=== PATIENT | male | born 1975 | race Caucasian/White ===

== ENCOUNTER 2017-04-08 23:05 | Emergency (ER) | payer MEDICAID ==
[~2017-04-08] VITALS: Ht 177.8 cm; Wt 110.5 kg
[2017-04-09] MEDS ORDERED: HydrOXYzine HCL 25 MG TABLET PO ONE (02:15)
[2017-04-09 02:35] VITALS: BP 131/75
== END 2017-04-09 02:38 | disposition home or self-care (01) ==
LOC: EMS 23:10
DX: F41.9 Anxiety disorder, unspecified (principal); F15.90 Other stimulant use, unspecified, uncomplicated
CPT/HCPCS: 99284

== ENCOUNTER 2018-11-23 12:16 | Emergency (ER) | payer SELFPAY ==
[~2018-11-23] VITALS: Ht 182.9 cm; Wt 111.4 kg
[2018-11-23 13:59] VITALS: BP 182/106
== END 2018-11-23 14:54 | disposition home or self-care (01) ==
LOC: EDUNIT# 12:16 → EMS 12:19
DX: F10.239 Alcohol dependence with withdrawal, unspecified (principal); F41.9 Anxiety disorder, unspecified; I10 Essential (primary) hypertension; Z88.0 Allergy status to penicillin; Y90.9 Presence of alcohol in blood, level not specified
CPT/HCPCS: 93005